=== PATIENT | female | born 1995 | race Caucasian/White ===

== ENCOUNTER 2016-10-28 20:24 | Emergency (ER) | payer OTHER ==
[2016-10-28 20:29] VITALS: TEMP 98.4; O2SAT 96
--- NOTE | 2016-10-28 21:24 | EDPHY ---
H & P Smoking Status: Never smoked Time Seen by Provider: 10/28/16 20:55 HPI/ROS: CHIEF COMPLAINT: M1 hold HISTORY OF PRESENT ILLNESS: Patient is a 21-year-old female who presents emergency department after being placed on an M1 hold by police. The patient states she does not need to be in her and she did not do anything. Per the M1 hold, the patient cut her left wrist with a razor. She was upset because she broke up with boyfriend. Patient denies suicidal ideation to me. She denies ingestion or self-harm. REVIEW OF SYSTEMS: My complete review of systems is negative except as mentioned in the HPI. ( Naomi Jacobs) Past Medical/Surgical History: Negative Past surgical history: Negative Social history: The patient denies drugs or alcohol. (Naomi Jacobs) Physical Exam: Vitals noted GENERAL: No acute distress, alert. HEENT: Eyes normal to inspection, normal pharynx, no signs of dehydration. NECK: No thyromegaly, no lymphadenopathy, supple. RESPIRATORY: Clear to auscultation bilaterally, no rales, rhonchi or wheezing. CVS: Regular rate and rhythm, no rubs, murmurs, or gallops. ABDOMEN: Soft, nontender, nondistended, no organomegaly. BACK: Normal to inspection, no CVA tenderness. SKIN: Normal color, no rash, warm, dry. No pallor. EXTREMITIES: No pedal edema, no joint swelling. Patient's left wrist has superficial lacerations volar aspect. These do not require suture repair. NEURO/PSYCH: Alert and oriented x3, normal mood and affect, normal motor sensory exam. No obvious cranial nerve deficit. (Naomi Jacobs) Constitutional: Initial Vital Signs Temperature (C) 36.9 C 10/28/16 20:27 Heart Rate 102 H 10/28/16 20:27 Respiratory Rate 14 10/28/16 20:27 Blood Pressure 118/78 10/28/16 20:27 O2 Sat (%) 96 10/28/16 20:27 O2 Delivery Mode Room Air Allergies/Adverse Reactions: No Known Allergies Allergy (Unverified 10/28/16 20:27) Home Medications: Medication Instructions Recorded Azithromycin [Zithromax] 250 mg PO DAILY #6 tab 02/13/16 Medical Decision Making ED Course/Re-evaluation: In the emergency department I discussed the hold with the patient. I answered all her questions. She consented to our evaluation. Laboratory studies were ordered. Psychiatric Services were notified. I reviewed the patient's laboratory studies. CBC and chemistry were unremarkable. negative. Patient's tox screen showed positive benzodiazepines and cocaine. 2300: The patient is signed out at change of shift to Dr. Chowdhury. Pt is stable. (Naomi Jacobs) 2300 care assumed by me from Dr. Jacobs. Patient is pending mental health evaluation. 0700 PT signed out to DR Renteria pending mental health evaluation. No issues overnight during my care of this patient. (Gutierrez Chowdhury) 0700: Patient signed out to me by Dr. Chowdhury at shift change. She is awaiting evaluation. (Leilani Renteria) Differential Diagnosis: Differential includes but is not limited to depression, anxiety, suicidal ideation, self-harm, abrasion, laceration, ingestion (Naomi Jaocbs) - Data Points Laboratory Results: Laboratory Results 10/28/16 21:20 10/28/16 21:20 10/28/16 10/28/16 10/28/16 21:50 21:20 21:20 WBC 7.56 10^3/uL 10^3/uL (3.80-9.50) RBC 4.79 10^6/uL 10^6/uL (4.18-5.33) Hgb 15.2 g/dL g/dL (12.6-16.3) Hct 44.2 % % (38.0-47.0) MCV 92.3 fL fL (81.5-99.8) MCH 31.7 pg pg (27.9-34.1) MCHC 34.4 g/dL g/dL (32.4-36.7) RDW 12.2 % % (11.5-15.2) Plt Count 272 10^3/uL 10^3/uL (150-400) MPV 9.8 fL fL (8.7-11.7) Neut % (Auto) 66.3 % % (39.3-74.2) Lymph % (Auto) 23.9 % % (15.0-45.0) Sabine % (Auto) 5.8 % % (4.5-13.0) Eos % (Auto) 3.4 % % (0.6-7.6) Baso % (Auto) 0.3 % % (0.3-1.7) Nucleat RBC Rel Count 0.0 % % (0.0-0.2) Absolute Neuts (auto) 5.01 10^3/uL 10^3/uL (1.70-6.50) Absolute Lymphs (auto) 1.81 10^3/uL 10^3/uL (1.00-3.00) Absolute Monos (auto) 0.44 10^3/uL 10^3/uL (0.30-0.80) Absolute Eos (auto) 0.26 10^3/uL 10^3/uL (0.03-0.40) Absolute Basos (auto) 0.02 10^3/uL 10^3/uL (0.02-0.10) Absolute Nucleated RBC 0.00 10^3/uL 10^3/uL (0-0.01) Immature Gran % 0.3 % % (0.0-1.1) Immature Gran # 0.02 10^3/uL 10^3/uL (0.00-0.10) Sodium 141 mEq/L mEq/L (134-144) Potassium 4.3 mEq/L mEq/L (3.5-5.2) Chloride 106 mEq/L mEq/L (97-110) Carbon Dioxide 22 mEq/l mEq/l (22-31) Anion Gap 13 mEq/L mEq/L (8-16) BUN 15 mg/dL mg/dL (7-23) Creatinine 1.0 mg/dL mg/dL (0.6-1.0) Estimated GFR > 60 Glucose 85 mg/dL mg/dL (70-100) Calcium 9.8 mg/dL mg/dL (8.5-10.4) Beta HCG, Quant < 2.39 mIU/mL mIU/mL (0-4.83) Urine Opiates Screen NEGATIVE (NEGATIVE) Urine Barbiturates NEGATIVE (NEGATIVE) Ur Phencyclidine Scrn NEGATIVE (NEGATIVE) Ur Amphetamine Screen NEGATIVE (NEGATIVE) U Benzodiazepines Scrn NON-NEGATIVE H (NEGATIVE) Urine Cocaine Screen NON-NEGATIVE H (NEGATIVE) U Marijuana (THC) Screen NEGATIVE (NEGATIVE) Ethyl Alcohol < 10 mg/dL mg/dL (0-10) Medications Given: Discontinued Medications Lorazepam (Ativan) 0.5 mg PO EDNOW ONE Stop: 10/29/16 00:53 Last Admin: 10/29/16 00:55 Dose: 0.5 mg Lorazepam (Ativan) 1 mg PO EDNOW ONE Stop: 10/29/16 02:35 Last Admin: 10/29/16 02:46 Dose: 1 mg Departure - Departure Disposition: Home, Routine, Self-Care Clinical Impression: Self-harming behavior Condition: Good Instructions: Depression (ED) Additional Instructions: Please follow up as directed by mental health. Contact [facility] at any point your feeling unsafe, suicidal, or considering other self-harming behavior. Referrals: NONE *PRIMARY CARE P,. [Primary Care Provider] - As per Instructions [facility] [[facility]] - As per Instructions
[2016-10-28 21:56] LABS: % IMMATURE GRANULYOCYTES 0.3 % (0.0-1.1); ABSOLUTE IMMATURE GRANULOCYTES 0.02 10^3/uL (0.00-0.10); ADD DIFF? NO; ADD MORPH? NO; ADD SCAN? NO; ATYPICAL LYMPHOCYTE FLAG 10 (0-99); FRAGMENT RBC FLAG 0 (0-99); HEMATOCRIT 44.2 % (38.0-47.0); HEMOGLOBIN 15.2 g/dL (12.6-16.3); LEFT SHIFT FLG 10 (0-99); LIPEMIA HEMOLYSIS FLAG 90 (0-99); MEAN CELL HEMOGLOBIN 31.7 pg (27.9-34.1); MEAN CELL HEMOGLOBIN CONCENTR. 34.4 g/dL (32.4-36.7); MEAN CELL VOLUME 92.3 fL (81.5-99.8); MEAN PLATELET VOLUME 9.8 fL (8.7-11.7); PLATELET CLUMPS FLAG 0 (0-99); PLATELET COUNT 272 10^3/uL (150-400); RED BLOOD CELL COUNT 4.79 10^6/uL (4.18-5.33); RED CELL DISTRIBUTION WIDTH 12.2 % (11.5-15.2)
[2016-10-28 22:05] LABS: ANION GAP 13 mEq/L (8-16); CALCIUM 9.8 mg/dL (8.5-10.4); CARBON DIOXIDE 22 mEq/l (22-31); CHLORIDE 106 mEq/L (97-110); ETHANOL SERUM < 10 mg/dL (0-10); GLOMERULAR FILTRATION RATE > 60; GLUCOSE 85 mg/dL (70-100); POTASSIUM 4.3 mEq/L (3.5-5.2); SODIUM 141 mEq/L (134-144)
[2016-10-29] MEDS ORDERED: LORazepam 0.5 MG TAB PO ONE (00:52)
[2016-10-29] MEDS ORDERED: LORazepam 1 MG TAB PO ONE (02:34)
[2016-10-29] MEDS ORDERED: LORazepam 0.5 MG TAB ONE (02:38)
[2016-10-29 09:23] VITALS: BP 110/70; PULSE 99; RESP 18
== END 2016-10-29 09:24 | disposition home or self-care (01) ==
DX: S69.92XA Unspecified injury of left wrist, hand and finger(s), initial encounter (principal); X78.8XXA Intentional self-harm by other sharp object, initial encounter
CPT/HCPCS: 80305; G0480